=== PATIENT | male | born 1975 | race Two or more races ===

== ENCOUNTER 2018-10-02 14:41 | Emergency (ER) | payer MEDICAID, OTHER ==
[~2018-10-02] VITALS: Ht 190.5 cm; Wt 90.7 kg
[2018-10-02] MEDS ORDERED: ACETAMINOPHEN 325 MG TAB PO ONE (15:00)
[2018-10-02 15:44] LABS: Alanine Aminotransferase 51 U/L (16-61); Albumin 3.7 g/dL (3.4-5.0); Anion Gap 11 (5-15); Aspartate Aminotransferase 39 U/L (15-37); Blood Urea Nitrogen 9 mg/dL (7-18); Calcium 8.7 mg/dL (8.5-10.1); Carbon Dioxide 23 mmol/L (21-32); Chloride 100 mmol/L (98-107); Glucose 131 mg/dL (74-106); Potassium 3.8 mmol/L (3.5-5.1); Sodium 134 mmol/L (136-145)
[2018-10-02 15:48] LABS: Alkaline Phosphatase 74 U/L (45-117); BUN/Creatinine Ratio 7.1; Bilirubin, Total 0.5 mg/dL (0.2-1.0); GFR African American 81 mL/min; GFR Non-African American 67 mL/min
[2018-10-02] MEDS ORDERED: SODIUM CHLORIDE 0.9% 1,000 ML IV ONE (15:48)
[2018-10-02 15:54] LABS: Hematocrit 46.2 % (41.0-53.0); Hemoglobin 15.8 g/dL (13.5-17.5); Mean Corpuscular Hemoglobin 31.4 pg (28.0-32.0); Mean Corpuscular Hgb Conc. 34.1 g/dL (32.0-36.0); Platelet Count (auto) 229 10^3/uL (140-450); Red Blood Cells 5.02 10^6/uL (4.5-5.90); White Blood Cell 6.3 10^3/uL (4.4-10.8)
[2018-10-02 15:57] LABS: Band Neutrophils % (manual) 0; Basophils % (manual) 0 (0.0-2.0); Blast Cells 0; Eosinophils % (manual) 0 (0-7); Metamyelocytes % 0; Myelocytes % 0; Promyelocytes % 0; Reactive Lymphocytes 0
[2018-10-02] MEDS ORDERED: METOCLOPRAMIDE HCL 5MG/ml INJ 2ml VIAL IV ONE (16:00)
[2018-10-02] MEDS ORDERED: KETOROLAC TROMETH 30 MG/ML 1ML VIAL IV ONE (16:00)
[2018-10-02 17:33] LABS: Urine WBC None Seen /hpf (0 - 3)
[2018-10-02 17:54] LABS: Urine Bacteria NONE SEEN /hpf (None Seen); Urine Blood 1+ /uL (Negative); Urine Specific Gravity 1.007 (1.001-1.035)
[2018-10-02 18:43] LABS: Lymphocytes % (manual) 37 (10.0-50.0); Monocytes % (manual) 16 (0-12)
[2018-10-02] MEDS ORDERED: LACTULOSE 20Gm/30ML SOLN PO ONE (18:45)
[2018-10-02 19:20] VITALS: BP 135/87
== END 2018-10-02 20:40 | disposition home or self-care (01) ==
LOC: ER 14:46
DX: J02.0 Streptococcal pharyngitis (principal); M25.50 Pain in unspecified joint; K59.01 Slow transit constipation; I10 Essential (primary) hypertension
CPT/HCPCS: 36415; 71045; 80053; 81001; 83605; 83735; 84443; 84484; 85007; 85027; 85652; 87040; 87804; 87880; 93005; 94761; 96374; 96375; 99284; J1885; J2765; J7030